=== PATIENT | female | born 1945 | race Asian ===

== ENCOUNTER 2018-08-24 12:45 | Inpatient (IN) | payer MEDICARE, BC ==
[2018-08-24] MEDS ORDERED: FENTAnyl 50 MCG/ML VIAL (14:49)
[2018-08-24] MEDS ORDERED: ROCURONIUM 50 MG INJ (14:49)
[2018-08-24] MEDS ORDERED: PROPOFOL 20 ML (14:49)
[2018-08-24] MEDS ORDERED: MIDAZOLAM 1 MG/ML 2 ML INJ (14:49)
[2018-08-24] MEDS ORDERED: CEFAZOLIN 1 GM INJ (14:49)
[2018-08-24] MEDS ORDERED: METOCLOPRAMIDE 10 MG INJ IV (15:00)
[2018-08-24] MEDS ORDERED: LABETALOL HCL 20MG INJ IV (15:00)
[2018-08-24] MEDS ORDERED: OXYCODONE/ACETAMINOPHEN (5/325) TAB PO (15:00)
[2018-08-24] MEDS ORDERED: HYDROmorphONE 1 MG/5 ML IV SYRINGE IV (15:00)
[2018-08-24] MEDS ORDERED: MEPERIDINE 25 MG INJ IV (15:00)
[2018-08-24] MEDS ORDERED: hydrALAzine 20 MG INJ IV (15:00)
[2018-08-24] MEDS ORDERED: DIPHENHYDRAMINE 50 MG INJ IV ×2 (15:00→16:00)
[2018-08-24] MEDS ORDERED: FENTAnyl 50 MCG/ML VIAL IV ×3 (15:00)
[2018-08-24] MEDS ORDERED: EPHEDrine SULFATE 50 MG/5 ML SYG IV (15:00)
[2018-08-24] MEDS ORDERED: GELATIN SIZE 100 SPONGE (15:31)
[2018-08-24] MEDS ORDERED: AL HYDROX/MG HYDROX/SIMETH 30 ML CUP PO (16:00)
[2018-08-24] MEDS ORDERED: ONDANSETRON 4 MG INJ IV (16:00)
[2018-08-24] MEDS ORDERED: CYCLOBENZAPRINE 10 MG TAB PO (16:00)
[2018-08-24] MEDS ORDERED: CEPASTAT LOZENGE MT (16:00)
[2018-08-24] MEDS: CEFAZOLIN 1 GM/50 ML (PMX) 50 ML IVPB ×2 (16:00→23:47)
[2018-08-24] MEDS ORDERED: BISACODYL 10 MG SUPP PR (16:00)
[2018-08-24] MEDS ORDERED: DIPHENHYDRAMINE 25 MG CAP PO (16:00)
[2018-08-24] MEDS ORDERED: ACETAMINOPHEN 325 MG TAB PO (16:00)
[2018-08-24] MEDS ORDERED: HYDROCODONE/APAP (5/325) TAB PO ×2 (16:00)
[2018-08-24] MEDS ORDERED: NALOXONE (0.4 MG/ML) INJ IV (16:00)
[2018-08-24] MEDS ORDERED: HYDROmorphONE 0.5 MG/0.5 ML SYG IV (16:00)
[2018-08-24] MEDS ORDERED: KETOROLAC 30 MG INJ (16:52)
[2018-08-24] MEDS ORDERED: DEXAMETHASONE 4 MG/ML 5 ML INJ (16:52)
[2018-08-24] MEDS ORDERED: METOCLOPRAMIDE 10 MG INJ (16:52)
[2018-08-24] MEDS ORDERED: ONDANSETRON 4 MG INJ (16:52)
[2018-08-24] MEDS ORDERED: BUPIVACAINE 0.5% (SDV) 30 ML INJ (17:29)
[2018-08-24] MEDS ORDERED: NEOSTIGMINE 3 MG/3 ML SYRINGE (17:39)
[2018-08-24] MEDS ORDERED: GLYCOPYRROLATE 0.4 MG INJ (17:39)
[2018-08-24] MEDS: CA CHLORIDE (GM) 10% 10 ML INJ (17:42)
[2018-08-24] MEDS: BUPIVACAINE 0.25%/EPI (SDV) 30 ML INJ (17:42)
[2018-08-24] MEDS: HEPARIN 1000 UNITS/ML 10 ML INJ (17:43)
[2018-08-24] MEDS: SURGIFOAM POWDER 1 GM KIT (17:43)
[2018-08-24] MEDS: THROMBIN (BOVINE) 5,000 UNIT VIAL TP (17:44)
[2018-08-24] MEDS: POLYMYXIN/BACITRACIN 1L IRRIG (17:44)
[2018-08-24] MEDS ORDERED: NALOXONE (0.4 MG/ML) INJ (17:57)
[2018-08-24] MEDS: BUPIVACAINE 0.5% (MPF) 30 ML INJ INJ (17:58)
[2018-08-24] MEDS: LACTATED RINGER'S 1,000 ML IV (18:26)
[2018-08-24] MEDS: ONDANSETRON 4 MG INJ IV (18:29)
[2018-08-24] MEDS: HYDROmorphONE 1 MG/5 ML IV SYRINGE IV ×2 (18:30→18:57)
[2018-08-24] MEDS: DOCUSATE SODIUM 100 MG CAP PO (21:07)
[2018-08-24] MEDS: ATORVASTATIN 40 MG TAB PO (21:07)
[2018-08-24] MEDS: D5W-0.45 NACL + KCL 20 MEQ 1,000 ML IV (23:04)
[2018-08-25] MEDS: D5W-0.45 NACL + KCL 20 MEQ 1,000 ML IV (01:38)
[2018-08-25 05:05] LABS: ADD MAN DIFF? NO
[2018-08-25 05:15] LABS: BASOPHILS % 0.1 % (0.0-2.0); HEMATOCRIT 35.1 % (37.0-47.0); HEMOGLOBIN 11.5 g/dl (12.0-16.0); LYMPHOCYTES # 1.1 10^3/ul (0.8-2.9); LYMPHOCYTES % 9.2 % (15.0-51.0); MEAN CORPUSCULAR HEMOGLOBIN 31.2 pg (29.0-33.0); MEAN CORPUSCULAR HGB CONC 32.8 g/dl (32.0-37.0); MEAN CORPUSCULAR VOLUME 95.1 fl (82.0-101.0); MEAN PLATELET VOLUME 9.3 fl (7.4-10.4); MONOCYTE # 0.5 10^3/ul (0.3-0.9); MONOCYTES % 3.9 % (0.0-11.0); NEUTROPHILS % 86.3 % (39.0-77.0); PLATELET COUNT 234 10^3/UL (140-415); RED BLOOD COUNT 3.69 10^6/ul (4.20-5.40); RED CELL DISTRIBUTION WIDTH 11.7 % (11.5-14.5)
[2018-08-25 05:15] LABS: WHITE BLOOD COUNT 11.6 10^3/ul (4.8-10.8)
[2018-08-25 05:43] LABS: ANION GAP 7 (5-13); BLOOD UREA NITROGEN 16 mg/dl (7-20); CALCIUM 8.9 mg/dl (8.4-10.2); CARBON DIOXIDE 25 mmol/L (21-31); CHLORIDE 106 mmol/L (97-110); CREATININE 0.62 mg/dl (0.44-1.00); GLUCOSE 175 mg/dl (70-220); MAGNESIUM 1.7 mg/dl (1.7-2.5); POTASSIUM 4.7 mmol/L (3.5-5.1); SODIUM 138 mmol/L (135-144)
[2018-08-25] MEDS: CEFAZOLIN 1 GM/50 ML (PMX) 50 ML IVPB (08:13)
[2018-08-25] MEDS: DOCUSATE SODIUM 100 MG CAP PO (08:14)
[2018-08-25] MEDS: LISINOPRIL 20 MG TAB PO (08:14)
[2018-08-25] MEDS: ATENOLOL 25 MG TAB PO (08:14)
[2018-08-25] MEDS: SOLIFENACIN 5 MG TAB PO (08:14)
== END 2018-08-25 11:14 | disposition home or self-care (01) | DRG 517 ==
LOC: REC 12:45 → MS1 20:00
PROC: 01NB0ZZ Release Lumbar Nerve, Open Approach (ICD-10-PCS; principal; 2018-08-24 15:30)
PROC: 4A11X4G Monitoring of Peripheral Nervous Electrical Activity, Intraoperative, External Approach (ICD-10-PCS; 2018-08-24 15:30)
DX: M71.38 Other bursal cyst, other site (principal); I10 Essential (primary) hypertension; E78.5 Hyperlipidemia, unspecified; G47.33 Obstructive sleep apnea (adult) (pediatric); M48.07 Spinal stenosis, lumbosacral region; M54.17 Radiculopathy, lumbosacral region
CPT/HCPCS: 72020; 80048; 83735; 85025; 86999; 88304; 88311; 97116; 97161; 97530